=== PATIENT | female | born 1935 | race Caucasian/White ===

== ENCOUNTER → 2020-09-20 | Outpatient (CLI) | payer BC | LOC: M.CT 09-14 11:30 | DX: R29.5 Transient paralysis (principal); R42 Dizziness and giddiness; R51.9 Headache, unspecified; R90.82 White matter disease, unspecified ==

== ENCOUNTER → 2021-04-21 | Outpatient (CLI) | payer BC | LOC: M.RAD 14:13 | PROVIDERS: ATTEND Internal Medicine Cardiovascular Disease | DX: I10 Essential (primary) hypertension (principal); I48.92 Unspecified atrial flutter ==